=== PATIENT | female | born 1955 | race Caucasian/White ===

== ENCOUNTER 2017-06-10 16:07 | Outpatient (CLI) | payer BC ==
[2017-06-10 17:59] LABS: #Eosinphils 0.1 thou/uL (0.0-0.7); #Lymphocytes 1.9 thou/uL (1.20-3.40); #Monocytes 0.8 thou/uL (0.11-0.59); #Neutrophils 9.2 thou/uL (1.40-6.50); %Basophils 0.3 % (0.0-1.0); %Eosinophils 0.5 % (0.0-10.0); %Lymphocytes 15.9 % (21.0-51.0); %Monocytes 6.7 % (0.0-10.0); %Neutrophils 76.6 % (42.0-75.0); Hemoglobin 13.1 g/dL (12.0-16.0); Mean Corpuscular HGB CONC 32.9 g/dL (32.0-36.0); Mean Corpuscular Hemoglobin 31.9 pg (27.0-31.0); Mean Corpuscular Volume 97.1 fl (81.0-99.0); Mean Platelet Volume 8.2 fL (7.4-10.4); Platelet Count 250 thou/uL (130-400); RBC Distribution Width 12.1 % (11.5-14.5); Red Blood Cell (RBC) Count 4.09 mill/uL (4.20-5.40)
[2017-06-10 18:25] LABS: Anion Gap 10 mmol/L (10-20); BUN (Urea Nitrogen) 23 mg/dL (9.8-20.1); Calc. Creatinine Clearance 0 mL/min (70-130); Calcium 9.4 mg/dL (7.8-10.44); Carbon Dioxide 28 mmol/L (23-31); Chloride 107 mmol/L (98-107); Estimated GFR-MDRD 72; Glucose 151 mg/dL (80-115); Potassium 4.4 mmol/L (3.5-5.1); Sodium 141 mmol/L (136-145)
== END 2017-06-10 16:08 | disposition home or self-care (01) ==
LOC: LABBT 16:07
PROVIDERS: ATTEND Orthopaedic Surgery
DX: Z01.818 Encounter for other preprocedural examination (principal); S83.242A Other tear of medial meniscus, current injury, left knee, initial encounter
CPT/HCPCS: 80048; 85025

== ENCOUNTER 2017-06-14 07:40 | Day surgery (SDC) | payer BC ==
[2017-06-10 16:16] VITALS: BMI 30.7
[2017-06-14] MEDS ORDERED: Lidocaine 1% PF 5 ML VIAL ONE (08:20)
[2017-06-14] MEDS ORDERED: Diprivan 20 ML ONE ×2 (08:20→08:39)
[2017-06-14] MEDS ORDERED: Clindamycin/D5W 600 mg/50 ml Premix Bag ONE (08:32)
[2017-06-14] MEDS ORDERED: HYDROmorphone 0.5 MG/0.5 ML SYRINGE ONE (09:08)
[2017-06-14] MEDS ORDERED: Ondansetron HCl/PF 4 MG/2 ML Vial ONE (09:20)
[2017-06-14] MEDS ORDERED: Dexamethasone 20 MG/5 ML VIAL ONE (09:20)
[2017-06-14] MEDS ORDERED: Ketorolac Tromethamine 30 MG/ML VIAL ONE (09:37)
--- NOTE | 2017-06-14 11:43 | OP ---
PREOPERATIVE DIAGNOSIS: Left medial meniscal tear. POSTOPERATIVE DIAGNOSIS: Medial and lateral meniscal tear. SURGEON: Nixon Armenta M.D. ANESTHESIA: General. BLOOD LOSS: Minimal. SPECIMEN: None. DRAINS: None. COMPLICATIONS: None. PROCEDURE IN DETAIL: Scope was placed in the lateral portal and probe was placed in medial portal. Extensive tearing throughout the majority of the medial meniscus. I performed an extensive medial me niscectomy and probed the meniscus rim and confirmed it was stable. There was no significant arthrit is. ACL was intact. Lateral compartment has small anterior horn tear, was debrided using a 4-0 full radius resector. The knee was then irrigated and drained. Portals closed with nylon suture. Steri le dressings applied.
== END 2017-06-14 12:18 | disposition home or self-care (01) ==
LOC: SDC 07:40
PROVIDERS: ATTEND Orthopaedic Surgery
PROC: 0SBD4ZZ Excision of Left Knee Joint, Percutaneous Endoscopic Approach (ICD-10-PCS; principal; 2017-06-14)
DX: S83.242A Other tear of medial meniscus, current injury, left knee, initial encounter (principal); S83.282A Other tear of lateral meniscus, current injury, left knee, initial encounter; Z88.1 Allergy status to other antibiotic agents; Z88.0 Allergy status to penicillin; Z88.8 Allergy status to other drugs, medicaments and biological substances; Z98.890 Other specified postprocedural states
CPT/HCPCS: 93005; 93010; G8978-GP-CI; G8979-GP-CI; G8980-GP-CI; J1100; J1170; J1885; J2001; J2405; J2704; J3490

== ENCOUNTER 2017-07-15 08:10 | Outpatient (CLI) | payer BC ==
[2017-07-15 09:45] LABS: Hemoglobin 14.2 g/dL (12.0-16.0); Mean Corpuscular HGB CONC 34.1 g/dL (32.0-36.0); Mean Corpuscular Hemoglobin 32.9 pg (27.0-31.0); Mean Corpuscular Volume 96.7 fl (81.0-99.0); Mean Platelet Volume 8.2 fL (7.4-10.4); Platelet Count 231 thou/uL (130-400); RBC Distribution Width 12.6 % (11.5-14.5); Red Blood Cell (RBC) Count 4.31 mill/uL (4.20-5.40); White Blood Cell (WBC) Count 9.1 thou/uL (4.8-10.8)
[2017-07-15 09:53] LABS: PTT 26.8 SEC (22.9-36.1)
[2017-07-15 09:54] LABS: Prothrombin Time 13.2 SEC (12.0-14.7)
[2017-07-15 10:08] LABS: Anion Gap 11 mmol/L (10-20); BUN (Urea Nitrogen) 16 mg/dL (9.8-20.1); Calc. Creatinine Clearance 0 mL/min (70-130); Calcium 9.7 mg/dL (7.8-10.44); Carbon Dioxide 30 mmol/L (23-31); Chloride 104 mmol/L (98-107); Estimated GFR-MDRD 71; Glucose 100 mg/dL (80-115); Potassium 4.1 mmol/L (3.5-5.1); Sodium 141 mmol/L (136-145)
== END 2017-07-15 08:11 | disposition home or self-care (01) ==
LOC: LABBT 08:10
PROVIDERS: ATTEND Neurological Surgery
DX: Z01.812 Encounter for preprocedural laboratory examination (principal); M54.16 Radiculopathy, lumbar region
CPT/HCPCS: 80048; 85027; 85610; 85730

== ENCOUNTER 2017-07-19 05:44 | Observation (INO) | payer BC ==
[2017-07-15 09:17] VITALS: BMI 30.7
[2017-07-19] MEDS ORDERED: Sodium Chloride 0.9% 10 ML ONE (06:16)
[2017-07-19] MEDS ORDERED: Bupivacaine HCl 0.5%/Epinephrine 1:200,000/PF 30 ml Vial ONE (06:16)
[2017-07-19] MEDS ORDERED: Thrombin 5000 UNITS/5 ML VIAL ONE (06:16)
[2017-07-19] MEDS ORDERED: Clindamycin/D5W 900 mg/50 ml Premix Bag ONE (06:19)
[2017-07-19] MEDS ORDERED: Levofloxacin 500 mg/D5W 100 ml Premix Bag ONE (06:19)
--- NOTE | 2017-07-19 06:34 | HP ---
REASON FOR ADMISSION: Back and leg pain, here for surgery. HISTORY OF PRESENT ILLNESS: Ms. Herrera is a 62-year-old woman with a left L3 radiculopathy and pos sible L4 involvement as well. Physical therapy and nonsurgical management have failed and she is her e for surgical intervention. PAST MEDICAL HISTORY: Thyroid disease, back pain, anemia, chickenpox, heart disease, measles, hyperl ipidemia, meniscus tear. PAST SURGICAL HISTORY: Rotator cuff surgery, thyroidectomy, cardiac stent, gastric sleeve, colonosco py with polyp resection, left meniscus repair, lipoma removal. MEDICATIONS: Synthroid, aspirin (held), Meloxicam, hydrocodone/acetaminophen, gabapentin and Flexeri l. ALLERGIES: PENICILLIN, ERYTHROMYCIN. SOCIAL HISTORY: Nonsmoker, no alcohol use. . Frequent international travel. FAMILY HISTORY: Noncontributory. REVIEW OF SYSTEMS: Otherwise negative. PHYSICAL EXAMINATION: There is moderate 4/5 weakness in the left quadriceps, there is a sensory defi cit in the left L3 and L4 dermatomes. The rest of the motor sensory examination in the lower extremi ties is normal. IMAGING: MRI scan reveals a lateral recess stenosis at L2-3, far lateral disk disease at L3-4 and so me lateral recess disease at L3-4. ASSESSMENT: L3 greater than L4 radiculopathy, left side. PLAN: Surgical exploration, decompression L3 and L4 nerve roots including lateral recess decompressi on and far lateral diskectomy. Patient expresses wishes to stay 1 night in the hospital and we can have her on twenty-three hour obs ervation to allow her to go home anytime she feels comfortable in the next 23 hours.
[2017-07-19] MEDS ORDERED: Fentanyl 100 MCG/2 ML VIAL ONE ×3 (07:31→11:10)
[2017-07-19] MEDS ORDERED: diphenhydrAMINE 25 MG CAP PO PRN (09:37)
[2017-07-19] MEDS ORDERED: Ondansetron HCl/PF 4 MG/2 ML Vial IVP PRN ×2 (09:37→10:31)
[2017-07-19] MEDS ORDERED: Promethazine 25 MG TAB PO PRN (09:37)
[2017-07-19] MEDS ORDERED: tiZANidine HCl 4 MG TAB PO PRN (09:37)
[2017-07-19] MEDS ORDERED: Morphine 4 MG/ML VIAL SLOW IVP PRN (09:37)
[2017-07-19] MEDS ORDERED: Acetaminophen/Codeine 30-300mg Tablet PO PRN ×2 (09:37)
[2017-07-19] MEDS ORDERED: Promethazine HCl 12.5 MG SUPP PR PRN (09:37)
[2017-07-19] MEDS ORDERED: HYDROmorphone 0.5 MG/0.5 ML SYRINGE ONE (09:53)
--- NOTE | 2017-07-19 10:09 | OP ---
DATE OF PROCEDURE: 07/19/2017 SURGEON: Johnny Ho M.D. JINRIKSHA DRIVER: Baljeet TERRELL. PREOPERATIVE INDICATION: Treat pain, prevent neurological deterioration. PREOPERATIVE DIAGNOSES: Left L3 and L4 radiculopathies, lateral recess stenosis at L2-L3 and L3-L4 f ar lateral disk herniation L3-L4. POSTOPERATIVE DIAGNOSES: Left L3 and L4 radiculopathies lateral recess stenosis at L2-L3 and L3-L4 f ar lateral disk herniation L3-L4. OPERATIVE PROCEDURE: Hemilaminectomy, medial facetectomy, foraminotomy on the left at L2-3 and L3-L4 , far lateral microdiskectomy at L3-4, operative microscope. PREOPERATIVE MEDICATION: Ancef 2 grams IV. DRAIN NUMBER: Zero. DRAIN TYPE: None. OPERATIVE DICTATION: The patient was brought to the operating room. General endotracheal anesthesia was induced. The patient was positioned prone on gel filled chest rolls and a lateral fluoro radiog raph was used to plan our incision. The lumbar skin was sterilely prepped and draped. We opened wit h a 10 blade knife and controlled bleeding with bipolar cautery. We used monopolar cautery to dissec t through subcutaneous tissues to thoracodorsal fascia. We incised the fascia left of the midline an d reflected the paraspinal muscles off the spinous process and lamina of L2, L3 and L4. A self-retai tae retractor was placed. A lateral fluoro radiograph confirmed the levels upon which we were opera ting. We then used a Kerrison rongeur to fashion a partial hemilaminectomy at L2-3 and L3-4. We rem richy the yellow ligament in piecemeal fashion and brought the operating microscope into the field. Under microscopic magnification using microsurgical techniques, we performed medial facetectomies at L2-3 and L3-4 until we could identify the traversing nerve roots and performed foraminotomies over th e exiting nerve root, exiting L3 and L4 nerve roots so that we could follow the L3 and L4 nerve roots across the lateral recess and out their respective foramina without impingement. We then turned our attention to the far lateral disk herniation. After the operating microscope, using a high-speed drill, we drilled out the superior portion of L3-4 facet joint on the left side and we thinned the lamina. We entered the neural foramen and remove ye llow ligament until we identified the L3 nerve root in the foramen and beyond it. There is a large d isk herniation inferior and ventral to it. The disk was loose and free. We probed the disk with a P enfield 4 and the large fragment of disk came out from under the nerve root under some pressure. We removed multiple loose fragments. We passed a pituitary rongeur into the interspace and made sure th at the remaining intervertebral disk was firmly attached to the endplates. We irrigated copiously wi th bacitracin irrigation. We waxed the bone edges. We controlled epidural bleeding with gentle bipo lar cautery and we infused local anesthetic in the paraspinal muscles. We closed the wound in anatom ic layers. We applied a sterile dressing. This was a clean case and no contamination.
[2017-07-19] MEDS ORDERED: Promethazine HCl 25 MG/ML VIAL IM PRN (10:31)
[2017-07-19] MEDS ORDERED: Promethazine HCl 25 MG/ML VIAL SLOW IVP PRN (10:31)
[2017-07-19] MEDS ORDERED: HYDROmorphone 2 MG/ML VIAL SLOW IVP PRN (10:31)
[2017-07-19] MEDS ORDERED: Ketorolac Tromethamine 30 MG/ML VIAL IVP PRN (10:31)
[2017-07-19] MEDS ORDERED: Meperidine HCl/PF 25 MG/ML VIAL SLOW IVP PRN (10:31)
[2017-07-19] MEDS ORDERED: PHENYLEPHRINE-NS 100 MCG/ML 10 ML SYRINGE ONE (10:52)
[2017-07-19] MEDS ORDERED: Glycopyrrolate 0.2 MG/ML 5 ML SYRINGE ONE (10:52)
[2017-07-19] MEDS ORDERED: PROPOFOL 200 MG/20 ML VIAL ONE (10:52)
[2017-07-19] MEDS ORDERED: Dexamethasone 20 MG/5 ML VIAL ONE (10:52)
[2017-07-19] MEDS ORDERED: Ondansetron HCl/PF 4 MG/2 ML Vial ONE (10:52)
[2017-07-19] MEDS ORDERED: Lidocaine 1% PF 5 ML VIAL ONE (10:52)
[2017-07-19] MEDS ORDERED: Ketorolac Tromethamine 30 MG/ML VIAL ONE (10:52)
[2017-07-19] MEDS ORDERED: diphenhydrAMINE 50 MG/ML VIAL ONE (10:52)
[2017-07-19] MEDS ORDERED: Clindamycin/D5W 900 MG in Premix Bag 1 BAG IVPB SCH (15:00)
[2017-07-19] MEDS: Cyclobenzaprine 10 MG TAB PO PRN (16:30)
[2017-07-19] MEDS ORDERED: HYDROcodone/Acetaminophen 5/325 mg Tablet PO PRN (19:31)
[2017-07-19] MEDS: HYDROcodone/Acetaminophen 5/325 mg Tablet PO PRN (22:09)
[2017-07-20] MEDS: Clindamycin/D5W 900 MG in Premix Bag 1 BAG IVPB SCH ×3 (01:00→10:22)
[2017-07-20] MEDS: HYDROcodone/Acetaminophen 5/325 mg Tablet PO PRN ×2 (04:05→10:11)
[2017-07-20] MEDS: Cyclobenzaprine 10 MG TAB PO PRN (08:44)
[2017-07-20] MEDS ORDERED: Clindamycin 150 MG CAP PO SCH (11:30)
[2017-07-20 12:34] VITALS: BP 157/75; TEMP 98.8
== END 2017-07-20 13:18 | disposition home or self-care (01) ==
LOC: SDC 05:44 → SJJU 10:47
PROVIDERS: ADMIT Neurological Surgery; ATTEND Neurological Surgery
PROC: 01NB0ZZ Release Lumbar Nerve, Open Approach (ICD-10-PCS; principal; 2017-07-19)
PROC: 0SB20ZZ Excision of Lumbar Vertebral Disc, Open Approach (ICD-10-PCS; 2017-07-19)
DX: M51.16 Intervertebral disc disorders with radiculopathy, lumbar region (principal); M48.061 Spinal stenosis, lumbar region without neurogenic claudication; D64.9 Anemia, unspecified; E78.5 Hyperlipidemia, unspecified; Z88.1 Allergy status to other antibiotic agents; Z88.0 Allergy status to penicillin; Z79.82 Long term (current) use of aspirin; Z79.899 Other long term (current) drug therapy
CPT/HCPCS: 51701; 76001; 96365; 96366; 96374; 96375; A4216; G0378; J0670; J1100; J1170; J1200; J1885; J1956; J2001; J2270; J2405; J2704; J3010; J3370; J3490

== ENCOUNTER 2017-07-31 12:43 | Outpatient (CLI) | payer BC ==
--- NOTE | 2017-07-31 15:10 | ULT ---
PELVIC ULTRASOUND INCLUDING TRANSABDOMINAL AND TRANSVAGINAL AND VASCULAR DUPLEX WITH COLOR AND SPECTR AL DOPPLER IMAGING: HISTORY: A 62-year-old female with postmenopausal bleeding. FINDINGS: The uterus is small and retroverted measuring 4.8 x 2.5 x 3.5 cm. The right ovary is not seen. The left ovary is small measuring 0.9 x 1 x 1.3 cm. Vascular duplex demonstrates flow in the left ovary. No abscess or abnormal fluid collection. IMPRESSION: Small uterus. Nonvisualized right ovary. No intrauterine mass, abscess, abnormal fluid collection, or other acute process. POS: EDDY
== END 2017-07-31 12:44 | disposition home or self-care (01) ==
LOC: ULT 12:43
PROVIDERS: ATTEND Obstetrics & Gynecology
DX: N95.0 Postmenopausal bleeding (principal); N85.8 Other specified noninflammatory disorders of uterus
CPT/HCPCS: 76856

== ENCOUNTER 2017-09-12 09:51 | Outpatient (CLI) | payer BC ==
--- NOTE | 2017-09-12 11:10 | RAD ---
LUMBAR SPINE TWO VIEWS: HISTORY: Low back pain. FINDINGS: There are five lumbar type vertebrae. The pedicles are intact. Leftward convex rotatory scoliotic c urvature of the lower lumbar spine. Mild community acquired pneumonia endplate compression of the L4 superior endplate. Disk space narrowing, gas disk phenomenon, and osteophytosis at the L3-L4 and L4 -L5 levels. Osteophytosis throughout the facets. IMPRESSION: Lumbar spondylosis. No acute osseous abnormalities are demonstrated. POS: EDDY
== END 2017-09-12 09:52 | disposition home or self-care (01) ==
LOC: TBSIIMAG 09:51
PROVIDERS: ATTEND Neurological Surgery
DX: M47.26 Other spondylosis with radiculopathy, lumbar region (principal)
CPT/HCPCS: 72100

== ENCOUNTER 2018-07-03 17:11 | Emergency (ER) | payer BC ==
--- NOTE | 2018-07-03 18:53 | CT ---
Head CT without contrast 07/03/2018: COMPARISON: none HISTORY: Fall, trauma, pain TECHNIQUE: Axial CT imaging at 5 mm intervals from vertex through skull base without contrast FINDINGS: Imaged paranasal sinuses and mastoid air cells well-aerated. No displaced calvarial fractur e. There is a focal area of scalp swelling in the right supraorbital region. No intracranial hemorrhage, midline shift, mass effect, or ventricular enlargement. Incidental note is made of a chor oidal fissure cyst measuring 8 mm on the left. IMPRESSION: Focal area of right frontal scalp swelling with no associated fracture or intracranial he morrhage.
[2018-07-03] MEDS ORDERED: diphenhydrAMINE 50 MG/ML VIAL ONE (18:57)
[2018-07-03] MEDS ORDERED: Ketorolac Tromethamine 30 MG/ML VIAL ONE (18:57)
[2018-07-03] MEDS ORDERED: Metoclopramide HCl 10 MG/2 ML VIAL ONE (18:57)
--- NOTE | 2018-07-03 18:59 | CT ---
CT of the facial bones: 07/03/2018 COMPARISON: None HISTORY: Fall, trauma, pain TECHNIQUE: Axial CT imaging through the face with coronal and sagittal reformatted imaging FINDINGS: Focal area of scalp swelling noted in the right frontal/supraorbital region. The frontal si nuses are hypoplastic. The maxillary sinuses, sphenoid sinuses, ethmoid air cells, and maxillary sinuses are well aerated. The nasal bones and the zygomatic arches are intact as are the pterygoid plates. The temporomandibular joints appear unremarkable as does the mandible. The orbital floor and the medi al orbital wall is intact bilaterally. The imaged brain parenchyma demonstrates no acute findings. Orbits/globes appear grossly unremarkable . Image cervical spine demonstrates multilevel bilateral facet hypertrophy, degenerative change at the atlantoaxial interspace, and degenerative disc disease at C4-5 and C5-6. IMPRESSION: No acute fracture or evidence of dislocation.
== END 2018-07-03 19:56 | disposition home or self-care (01) ==
LOC: ERS 17:11
DX: S06.0X0A Concussion without loss of consciousness, initial encounter (principal); S00.83XA Contusion of other part of head, initial encounter; I25.10 Atherosclerotic heart disease of native coronary artery without angina pectoris; E03.9 Hypothyroidism, unspecified; E78.5 Hyperlipidemia, unspecified; Z87.891 Personal history of nicotine dependence; F32.9 Major depressive disorder, single episode, unspecified; Z79.899 Other long term (current) drug therapy; W19.XXXA Unspecified fall, initial encounter
CPT/HCPCS: 36415; 70450; 70486; 82565; 96365; 96375; J1200; J1885; J2765

== ENCOUNTER 2018-10-08 13:41 | Outpatient (CLI) | payer BC ==
--- NOTE | 2018-10-17 14:50 | MMO ---
Bilateral MAMMO Bilat Screen [facility]. CLINICAL HISTORY: Patient is 63 years old and is seen for screening. The patient has a history of Skin cancer and cervical cancer. The patient has a history of bilateral Explantation in 2016, bilateral Implants in 2015 and bilateral Implants in 1999. VIEWS: The views performed were: bilateral craniocaudal with tomosynthesis and bilateral mediolateral oblique with tomosynthesis. FILMS COMPARED: The present examination has been compared to prior imaging studies performed at [facility] on 09/10/2012, 09/04/2013, 08/10/2015 and 08/10/2016. MAMMOGRAM FINDINGS: There are scattered fibroglandular densities. There are stable benign appearing calcifications seen in both breasts. There are no suspicious masses, suspicious calcifications, or new areas of architectural distortion. IMPRESSION: THERE IS NO MAMMOGRAPHIC EVIDENCE OF MALIGNANCY. A ROUTINE FOLLOW-UP MAMMOGRAM IN 1 YEAR IS RECOMMENDED. THE RESULTS OF THIS EXAM WERE SENT TO THE PATIENT. ACR BI-RADS Category 2 - Benign finding MAMMOGRAPHY NOTE: 1. A negative mammogram report should not delay a biopsy if a dominant of clinically suspicious mass is present. 2. Approximately 10% to 15% of breast cancers are not detected by mammography. 3. Adenosis and dense breasts may obscure an underlying neoplasm. Reported by: JACKI LOPEZ MD Electonically Signed: [id number]
== END 2018-10-08 13:42 | disposition home or self-care (01) ==
LOC: BICMAMMO 13:41
PROVIDERS: ATTEND Family Medicine
DX: Z12.31 Encounter for screening mammogram for malignant neoplasm of breast (principal)
CPT/HCPCS: 77063; 77067

== ENCOUNTER 2019-10-15 10:38 | Outpatient (CLI) | payer BC ==
--- NOTE | 2019-10-15 11:09 | MMO ---
Bilateral MAMMO Bilat Screen [facility]. CLINICAL HISTORY: Patient is 64 years old and is seen for screening. The patient has no family history of breast cancer. The patient has a history of Skin cancer and cervical cancer. The patient has a history of bilateral Explantation in 2016, bilateral Implants in 2016 and bilateral Implants in 1999. VIEWS: The views performed were: bilateral craniocaudal with tomosynthesis and bilateral mediolateral oblique with tomosynthesis. FILMS COMPARED: The present examination has been compared to prior imaging studies performed at [facility] on 09/04/2013, 08/10/2015 and 08/10/2016, and at [facility] on 10/08/2018. This study has been interpreted with the assistance of computer-aided detection. MAMMOGRAM FINDINGS: The breasts are almost entirely fat. Normal implants are present. There are no suspicious masses, suspicious calcifications, or new areas of architectural distortion. IMPRESSION: THERE IS NO MAMMOGRAPHIC EVIDENCE OF MALIGNANCY. A ROUTINE FOLLOW-UP MAMMOGRAM IN 1 YEAR IS RECOMMENDED. THE RESULTS OF THIS EXAM WERE SENT TO THE PATIENT. ACR BI-RADS Category 2 - Benign finding MAMMOGRAPHY NOTE: 1. A negative mammogram report should not delay a biopsy if a dominant of clinically suspicious mass is present. 2. Approximately 10% to 15% of breast cancers are not detected by mammography. 3. Adenosis and dense breasts may obscure an underlying neoplasm. Reported by: DIANA CLINTON MD Electonically Signed: [id number]
== END 2019-10-15 10:39 | disposition home or self-care (01) ==
LOC: BICMAMMO 10:38
PROVIDERS: ATTEND Family Medicine
DX: Z12.31 Encounter for screening mammogram for malignant neoplasm of breast (principal); Z85.828 Personal history of other malignant neoplasm of skin; Z85.41 Personal history of malignant neoplasm of cervix uteri; Z98.82 Breast implant status
CPT/HCPCS: 77063; 77067

== ENCOUNTER 2021-10-18 09:23 | Outpatient (CLI) | payer BC | END 2021-10-18 09:24 | disposition home or self-care (01) | LOC: NM 09:23 | PROVIDERS: ATTEND Family Medicine | DX: R10.9 Unspecified abdominal pain (principal) | CPT/HCPCS: 78227; A9537 ==

== ENCOUNTER 2021-10-24 08:53 | Outpatient (CLI) | payer BC | END 2021-10-24 08:54 | disposition home or self-care (01) | LOC: BICMAMMO 08:53 | PROVIDERS: ATTEND Family Medicine | DX: Z12.31 Encounter for screening mammogram for malignant neoplasm of breast (principal); Z85.41 Personal history of malignant neoplasm of cervix uteri; Z85.828 Personal history of other malignant neoplasm of skin; Z98.82 Breast implant status | CPT/HCPCS: 77063; 77067 ==

== ENCOUNTER 2022-09-19 10:03 | Outpatient (CLI) | payer BC ==
[2022-09-19 10:49] LABS: #Eosinphils 0.2 10x3/uL (0.0-0.5); #Monocytes 0.6 10x3/uL (0.0-1.1); #Neutrophils 2.7 10x3/uL (1.5-8.4); %Basophils 0.4 % (0.0-2.0); %Eosinophils 2.9 % (0.0-6.0); %Lymphocytes 35.5 % (18.0-47.0); %Monocytes 11.3 % (0.0-10.0); %Neutrophils 49.9 % (40.0-75.0); Mean Corpuscular HGB CONC 31.9 g/dL (32.0-36.0); Mean Corpuscular Hemoglobin 29.1 pg (27.0-33.0); Mean Corpuscular Volume 91.1 fl (81.6-98.3); Mean Platelet Volume 10.4 fl (7.4-10.4); Platelet Count 213 10x3/uL (150-450); RBC Distribution Width 13.7 % (11.5-14.5); Red Blood Cell (RBC) Count 4.47 10x6/uL (3.90-5.03); White Blood Cell (WBC) Count 5.5 10x3/uL (3.5-10.5)
== END 2022-09-19 10:04 | disposition home or self-care (01) ==
LOC: LABBT 10:03
PROVIDERS: ATTEND Orthopaedic Surgery Hand Surgery
DX: Z01.818 Encounter for other preprocedural examination (principal); M72.0 Palmar fascial fibromatosis [Dupuytren]; G56.01 Carpal tunnel syndrome, right upper limb
CPT/HCPCS: 85025; 93005; 93010

== ENCOUNTER 2022-10-09 06:10 | Day surgery (SDC) | payer BC ==
[2022-10-05 14:18] VITALS: BMI 28.8
[~2022-10-09 06:10] MED LIST: EPINEPHrine 0.3 MG in Ophthalmic Irrigation Solution 500 ML IRR SCH
[2022-10-09] MEDS ORDERED: Cyclopentolate 0.5% Opth Drops 15 ML BOT ONE (06:27)
[2022-10-09] MEDS ORDERED: PHENYLephrine 2.5% Ophth Soln 15 ml Bottle ONE (06:27)
[2022-10-09] MEDS ORDERED: Midazolam HCl 2 mg/2 ml Vial ONE (06:36)
[2022-10-09] MEDS ORDERED: fentaNYL 50 mcg/mL 1 mL Vial ONE (06:36)
[2022-10-09] MEDS ORDERED: PROPOFOL 20 ML ONE (06:36)
[2022-10-09] MEDS ORDERED: Triamcinolone 40 MG/ML VIAL ONE (07:47)
[2022-10-09] MEDS ORDERED: Lidocaine 4% PF 5 ML AMP ONE (07:47)
[2022-10-09] MEDS ORDERED: Bupivacaine 0.75% 10 ML VIAL ONE (07:47)
[2022-10-09] MEDS ORDERED: Maxitrol 0.1% Opth Oint 3.5 GM TUBE ONE (07:47)
== END 2022-10-09 08:30 | disposition home or self-care (01) ==
LOC: SDC 06:10
PROVIDERS: ATTEND Ophthalmology Retina Specialist
PROC: 08943ZZ Drainage of Right Vitreous, Percutaneous Approach (ICD-10-PCS; principal; 2022-10-09)
DX: H43.391 Other vitreous opacities, right eye (principal)
CPT/HCPCS: J0171; J2250; J2704; J3010; J3301; J3490

== ENCOUNTER 2022-10-17 09:34 | Outpatient (CLI) | payer BC | END 2022-10-17 09:35 | disposition home or self-care (01) | LOC: MRI 09:34 | PROVIDERS: ATTEND Orthopaedic Surgery | DX: M77.12 Lateral epicondylitis, left elbow (principal); S46.112A Strain of muscle, fascia and tendon of long head of biceps, left arm, initial encounter ==

== ENCOUNTER 2022-10-22 14:21 | Day surgery (SDC) | payer BC ==
[2022-10-18 14:45] VITALS: BMI 28.0
[2022-10-22] MEDS ORDERED: Ondansetron PF 4 MG/2 ML Vial ONE ×2 (15:50→17:53)
[2022-10-22] MEDS ORDERED: fentaNYL PF 100 MCG/2 ML SYRINGE ONE (17:23)
[2022-10-22] MEDS ORDERED: HYDROmorphone 0.5 MG/0.5 ML SYRINGE ONE (17:23)
[2022-10-22] MEDS ORDERED: Bupivacaine 0.25% HCL 30 ML VIAL ONE (17:36)
[2022-10-22] MEDS ORDERED: Bacitracin Zinc Ointment 30 gm TUBE ONE (17:40)
[2022-10-22] MEDS ORDERED: CEFAZOLIN 2 GM VIAL ONE (17:44)
[2022-10-22] MEDS ORDERED: Sodium Chloride 0.9% 100 ML ONE (17:44)
[2022-10-22] MEDS ORDERED: Midazolam HCl 2 mg/2 ml Vial ONE (17:44)
[2022-10-22] MEDS ORDERED: Dexamethasone 20 MG/5 ML VIAL ONE (17:53)
[2022-10-22] MEDS ORDERED: PROPOFOL 200 MG/20 ML VIAL ONE (17:53)
[2022-10-22] MEDS ORDERED: Ketorolac Tromethamine 30 MG/ML VIAL ONE (17:53)
[2022-10-22] MEDS ORDERED: Lidocaine 1% PF 5 ML VIAL ONE (17:53)
[2022-10-22] MEDS ORDERED: fentaNYL 50 mcg/mL 1 mL Vial ONE (18:24)
== END 2022-10-22 20:05 | disposition home or self-care (01) ==
LOC: SDC 14:21
PROVIDERS: ATTEND Orthopaedic Surgery Hand Surgery
PROC: 01N50ZZ Release Median Nerve, Open Approach (ICD-10-PCS; principal; 2022-10-22)
DX: G56.02 Carpal tunnel syndrome, left upper limb (principal); E78.5 Hyperlipidemia, unspecified; Z87.891 Personal history of nicotine dependence; Z79.899 Other long term (current) drug therapy; Z88.0 Allergy status to penicillin; Z88.1 Allergy status to other antibiotic agents; Z90.89 Acquired absence of other organs
CPT/HCPCS: J1100; J1170; J1885; J2250; J2405; J2704; J3010; J3490; S0020

== ENCOUNTER 2022-12-25 13:07 | Outpatient (CLI) | payer BC | END 2022-12-25 13:08 | disposition home or self-care (01) | LOC: BICMAMMO 13:07 | PROVIDERS: ATTEND Family Medicine | DX: Z12.31 Encounter for screening mammogram for malignant neoplasm of breast (principal); Z85.828 Personal history of other malignant neoplasm of skin; Z85.41 Personal history of malignant neoplasm of cervix uteri; Z98.82 Breast implant status | CPT/HCPCS: 77063; 77067 ==

== ENCOUNTER 2023-04-10 13:36 | Outpatient (CLI) | payer BC | END 2023-04-10 13:37 | disposition home or self-care (01) | LOC: MRI 13:36 | PROVIDERS: ATTEND Orthopaedic Surgery Hand Surgery | DX: M19.032 Primary osteoarthritis, left wrist (principal); M18.12 Unilateral primary osteoarthritis of first carpometacarpal joint, left hand; L90.5 Scar conditions and fibrosis of skin; M89.342 Hypertrophy of bone, left hand ==

== ENCOUNTER 2023-11-01 11:10 | Outpatient (CLI) | payer BC ==
[2023-11-01 13:20] LABS: #Basophils 0.04 10x3/uL (0.0-0.2); %Basophils 0.5 % (0.0-1.0); %Eosinophils 1.2 % (0.0-10.0); %Lymphocytes 33.9 % (21.0-51.0); %Monocytes 7.7 % (0.0-10.0); %Neutrophils 56.6 % (42.0-75.0); Hematocrit 39.9 % (36.0-47.0); Hemoglobin 12.6 g/dL (12.0-16.0); Mean Corpuscular HGB CONC 31.6 g/dL (32.0-36.0); Mean Corpuscular Hemoglobin 27.8 pg (27.0-31.0); Mean Corpuscular Volume 87.9 fL (78.0-98.0); Mean Platelet Volume 11.2 fL (7.4-10.4); Platelet Count 211 10x3/uL (130-400); RBC Distribution Width 15.6 % (11.5-14.5); Red Blood Cell (RBC) Count 4.54 mill/uL (4.20-5.40)
[2023-11-01 13:34] LABS: Anion Gap 11 mmol/L (10-20); BUN (Urea Nitrogen) 13 mg/dL (9.8-20.1); Calc. Creatinine Clearance 0 mL/min (70-130); Carbon Dioxide 26 mmol/L (23-31); Chloride 108 mmol/L (98-107); Sodium 141 mmol/L (136-145)
[2023-11-01 13:35] LABS: Calcium 9.6 mg/dL (7.8-10.44); Estimated GFR 96; Glucose 87 mg/dL (80-115)
== END 2023-11-01 11:11 | disposition home or self-care (01) ==
LOC: LABBT 11:10
PROVIDERS: ATTEND Orthopaedic Surgery Hand Surgery
DX: Z01.818 Encounter for other preprocedural examination (principal); M72.0 Palmar fascial fibromatosis [Dupuytren]; D48.7 Neoplasm of uncertain behavior of other specified sites
CPT/HCPCS: 80048; 85025; 93005; 93010

== ENCOUNTER 2023-11-07 14:50 | Outpatient (CLI) | payer BC | END 2023-11-07 14:51 | disposition home or self-care (01) | LOC: BICRAD 14:50 | PROVIDERS: ATTEND Family Medicine | DX: S92.514D Nondisplaced fracture of proximal phalanx of right lesser toe(s), subsequent encounter for fracture with routine healing (principal) ==

== ENCOUNTER 2023-12-27 10:07 | Outpatient (CLI) | payer BC | END 2023-12-27 10:08 | disposition home or self-care (01) | LOC: BICMAMMO 10:07 | PROVIDERS: ATTEND Family Medicine | DX: Z12.31 Encounter for screening mammogram for malignant neoplasm of breast (principal); Z85.828 Personal history of other malignant neoplasm of skin; Z85.41 Personal history of malignant neoplasm of cervix uteri; Z98.82 Breast implant status | CPT/HCPCS: 77063; 77067 ==

== ENCOUNTER 2024-11-06 07:37 | Outpatient (CLI) | payer MEDICARE ==
[2024-11-06 08:10] LABS: Estimated GFR - POC 80.0
[2024-11-06] MEDS ORDERED: Iopamidol 370 76% 100 ML VIAL ONE (15:28)
== END 2024-11-06 07:38 | disposition home or self-care (01) ==
LOC: CT 07:37
PROVIDERS: ATTEND Family Medicine
DX: R39.9 Unspecified symptoms and signs involving the genitourinary system (principal)
CPT/HCPCS: 36415; 74177; 82565